=== PATIENT | female | born 2005 | race Caucasian/White ===

== ENCOUNTER 2025-03-04 19:25 | Emergency (ER) | payer BC ==
[~2025-03-04] VITALS: Ht 162.6 cm; Wt 60.8 kg
[2025-03-04 19:27] VITALS: BP 163/98
[2025-03-04 20:08] LABS: PLATELET COUNT (AUTO) 270 K/uL (179-408); RED BLOOD CELL COUNT(AUTO) 4.73 MIL/uL (3.63-4.92); RED CELL DISTRIBUTION WIDTH 14.9 % (12.3-17.7); WHITE BLOOD COUNT (AUTO) 6.6 K/uL (3.8-11.8)
[2025-03-04] MEDS ORDERED: ONDANSETRON 4 MG/2 ML VIAL ONE (20:08)
[2025-03-04] MEDS: ONDANSETRON 4 MG/2 ML VIAL IV ONE (20:16)
[2025-03-04] MEDS: IV NORMAL SALINE 1000 ML BAG IV ONE (20:16)
[2025-03-04 20:20] LABS: ASPARTATE AMINOTRANSFERASE 15.0 U/L (15-37); CREATININE 0.9 mg/dL (0.6-1.3); SODIUM SERUM 140.0 mmol/L (136-145); TOTAL PROTEIN, SERUM 8.3 g/dL (6.4-8.2); UREA NITROGEN, BLOOD 5.0 mg/dL (7-18)
[2025-03-04 21:04] VITALS: BP 129/79; O2SAT 99
== END 2025-03-04 21:05 | disposition home or self-care (01) ==
LOC: ER 19:30
DX: R55 Syncope and collapse (principal); R20.2 Paresthesia of skin; Z88.0 Allergy status to penicillin
CPT/HCPCS: 99284; 96374; 96361; 80076; 80048; 85025; 36415; 93005; J2405; J7040; A4606; A4663